=== PATIENT | female | born 1970 | race Caucasian/White ===

== ENCOUNTER 2018-03-10 18:29 | Emergency (ER) | payer BC ==
[~2018-03-10] VITALS: Ht 152.4 cm; Wt 83.0 kg
== END 2018-03-10 19:35 | disposition home or self-care (01) ==
LOC: ER 18:29
DX: S00.83XD Contusion of other part of head, subsequent encounter (principal); W18.09XD Striking against other object with subsequent fall, subsequent encounter

== ENCOUNTER → 2018-03-10 | Emergency (ER) | payer BC ==
[~2018-03-10] VITALS: Ht 152.4 cm; Wt 83.0 kg
== END | disposition left against medical advice (07) ==
LOC: ER 12:03
DX: S00.83XA Contusion of other part of head, initial encounter (principal); W18.09XA Striking against other object with subsequent fall, initial encounter; Y93.89 Activity, other specified; Y92.098 Other place in other non-institutional residence as the place of occurrence of the external cause; Y99.8 Other external cause status

== ENCOUNTER 2018-10-06 10:01 | Emergency (ER) | payer BC ==
[~2018-10-06] VITALS: Ht 152.4 cm; Wt 85.3 kg
== END 2018-10-06 11:53 | disposition home or self-care (01) ==
LOC: ER 10:01
DX: S90.934A Unspecified superficial injury of right lesser toe(s), initial encounter (principal); W22.8XXA Striking against or struck by other objects, initial encounter; Y93.89 Activity, other specified; Y92.89 Other specified places as the place of occurrence of the external cause; Y99.8 Other external cause status